=== PATIENT | female | born 1975 | race American Indian/Alaskan Native ===

== ENCOUNTER 2018-12-18 10:06 | Emergency (ER) | payer OTHER ==
[2018-12-18 10:28] VITALS: BP 115/77; PULSE 66; RESP 18; TEMP 99.1; O2SAT 100
--- NOTE | 2018-12-18 11:06 | RAD ---
Date of service: 12/18/2018 PROCEDURE: Left Ankle Radiographs. HISTORY: left ankle pain swelling COMPARISON: None available. TECHNIQUE: 3 views obtained. FINDINGS: BONES: There is an old fracture deformity in the distal fibula. There is an old medially displaced fracture in the medial malleolus. No acute displaced fracture or bone destruction.. There is a small plantar calcaneal spur. 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 Ankle mortise maintained. Talar dome intact SOFT TISSUES: There is mild lateral soft tissue swelling. OTHER FINDINGS: None. IMPRESSION: 1. Old fracture deformities in the medial malleolus and distal fibula. 2. 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 3. No acute displaced fracture or dislocation.
--- NOTE | 2018-12-18 14:17 | C.PDOC ---
History Of Present Illness 43 y/o female presents to the ER complaining of persistent left ankle pain which has been present for the past 1 year. Patient states that she fell and broke her ankle while she was in [facility] in February 2018. Patient reports that she was evaluated by a doctor but she did not receive treatment. She notes that she was seen for same complaint in [facility] recently. She states that she was given referral for orthopedist but she did not follow up with an orthopedist as of now. She is able to ambulate without assistance. Denies having weakness and numbness. Chief Complaint (Nursing): Lower Extremity Problem/Injury History Per: Patient History/Exam Limitations: no limitations Onset/Duration Of Symptoms: Days Current Symptoms Are (Timing): Still Present Severity: Moderate Past Medical History Reviewed: Historical Data, Nursing Documentation, Vital Signs Vital Signs: Last Vital Signs Temp 99.1 F 12/18/18 10:24 Pulse 66 12/18/18 10:24 Resp 18 12/18/18 10:24 BP 115/77 12/18/18 10:24 Pulse Ox 100 12/18/18 10:24 - Medical History PMH: HTN Surgical History: No Surg Hx Family History: States: No Known Family Hx - Social History Hx Alcohol Use: No Hx Substance Use: No Review Of Systems Except As Marked, All Systems Reviewed And Found Negative. Musculoskeletal: Positive for: Other (left ankle pain) Neurological: Negative for: Weakness, Numbness Physical Exam - Physical Exam Appears: Non-toxic, No Acute Distress Skin: Normal Color, Warm, Dry Head: Atraumatic, Normacephalic Eye(s): bilateral: Normal Inspection Nose: Normal Oral Mucosa: Moist Neck: Supple Chest: Symmetrical Extremity: Normal ROM, Capillary Refill (< 2 seconds), Deformity (obvious deformity of left ankle) Pulses: Left Dorsalis Pedis: Normal Neurological/Psych: Oriented x3, Normal Speech Gait: Steady ED Course And Treatment O2 Sat by Pulse Oximetry: 100 (RA) Pulse Ox Interpretation: Normal - Other Rad X-Ray-Left Ankle X-Ray: Viewed By Me, Read By Radiologist Interpretation: Date of service: 12/18/2018. PROCEDURE: Left Ankle Radiographs. HISTORY: left ankle pain swelling. COMPARISON: None available. TECHNIQUE: 3 views obtained. FINDINGS: BONES: There is an old fracture deformity in the distal fibula. There is an old medially displaced fracture in the medial malleolus. No acute displaced fracture or bone destruction.. There is a small plantar calcaneal spur. There is a small dorsal calcaneal enthesophyte. 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 Ankle mortise maintained. Talar dome intact. SOFT TISSUES: There is mild lateral soft tissue swelling. OTHER FINDINGS: None. IMPRESSION: 1. Old fracture deformities in the medial malleolus and distal fibula. 2. 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 3. No acute displaced fracture or dislocation. Medical Decision Making Medical Decision Making: Plan: --X-Ray-Left Ankle Updates: Aircast Splint has been applied by laundry tech. Patient has been discharged and instructed to follow up with orthopedist. Disposition - Disposition Referrals: [facility] [Outside] [facility] [Outside] Orth[facility] Clinic at [Outside] Disposition: HOME/ ROUTINE Disposition Time: 11:00 Condition: GOOD Additional Instructions: DEJUAN MORALES, thank you for letting us take care of you today. The emergency medical care you received today was directed at your acute symptoms. If you were prescribed any medication, please fill it and take as directed. It may take several days for your symptoms to resolve. Return to the Emergency Department if your symptoms worsen, do not improve, or if you have any other problems. Please contact your doctor or call one of the physicians/clinics you have been referred to that are listed on the Patient Visit Information form that is included in your discharge packet. Bring any paperwork you were given at discharge with you along with any medications you are taking to your follow up visit. Our treatment cannot replace ongoing medical care by a primary care provider outside of the emergency department. Thank you for allowing the [employer] team to be part of your care today. You have a very old fracture (break) of your ankle. Follow up with the clinic to see the orthopedic doctor. Prescriptions: Ibuprofen [Motrin] 600 mg PO Q6 PRN #20 tab PRN Reason: Pain, Moderate (4-7) Instructions: Ankle Fracture (DC) Forms: [employer] (Turkish) - Clinical Impression Clinical Impression: Ankle fracture, left - Scribe Statement The provider has reviewed the documentation as recorded by the Nicibvangie Stephens Provider Attestation: All medical record entries made by the Scribe were at my direction and personally dictated by me. I have reviewed the chart and agree that the record accurately reflects my personal performance of the history, physical exam, medical decision making, and the department course for this patient. I have also personally directed, reviewed, and agree with the discharge instructions and disposition.
== END 2018-12-18 11:39 | disposition home or self-care (01) ==
LOC: C.ER 10:06
DX: S82.52XA Displaced fracture of medial malleolus of left tibia, initial encounter for closed fracture (principal); W19.XXXA Unspecified fall, initial encounter; I10 Essential (primary) hypertension

== ENCOUNTER 2019-01-14 12:12 | Emergency (ER) | payer OTHER ==
[2019-01-14 12:21] VITALS: RESP 18
[2019-01-14] MEDS ORDERED: Sodium Chloride 0.9% 1,000 ML IV ONE (12:57)
--- NOTE | 2019-01-14 13:17 | RAD ---
HISTORY: cough COMPARISON: None available. TECHNIQUE: Chest PA and lateral, 2 views FINDINGS: LUNGS: No focal consolidation. Please note that chest x-ray has limited sensitivity for the detection of pulmonary masses. PLEURA: No significant pleural effusion identified. No definite pneumothorax . CARDIOVASCULAR: Borderline cardiomegaly. Atherosclerotic calcifications present. OSSEOUS STRUCTURES: No acute osseous abnormality identified. VISUALIZED UPPER ABDOMEN: Unremarkable. OTHER FINDINGS: None. IMPRESSION: No focal consolidation.
[2019-01-14 13:35] LABS: BASO # 0.1 K/uL (0.0-0.2); EOS # 0.3 K/uL (0.0-0.7); EOS % 6.6 % (0.0-4.0); HEMOGLOBIN 9.5 g/dL (11.0-16.0); LYMPH # 1.3 K/uL (1.0-4.3); LYMPH % 26.2 % (20.0-40.0); MEAN CORPUSCULAR HEMOGLOBIN 19.5 pg (27.0-31.0); MEAN CORPUSCULAR HGB CONC 29.5 g/dL (33.0-37.0); MONO # 0.7 K/uL (0.0-0.8); MONO % 14.3 % (0.0-10.0); NEUT # 2.6 K/uL (1.8-7.0); NEUT % 51.9 % (50.0-75.0); NRBC % 0.2 % (0.0-2.0); RBC 4.87 Mil/uL (3.80-5.20); RED CELL DISTRIBUTION WIDTH 18.4 % (11.5-14.5)
[2019-01-14 13:40] LABS: MEAN CELL VOLUME 66.2 fL (81.0-99.0)
[2019-01-14 13:54] LABS: SQUAMOUS EPITHIAL 8 /hpf (0-5); URINE BACTERIA RARE (<OCC); URINE BILIRUBIN NEGATIVE (NEGATIVE); URINE BLOOD NEGATIVE (NEGATIVE); URINE CLARITY Hazy (Clear); URINE COLOR Yellow (YELLOW); URINE GLUCOSE (UA) NORMAL (Normal); URINE LEUKOCYTE ESTERASE TRACE Leu/uL (Negative); URINE PROTEIN NEGATIVE (NEGATIVE); URINE UROBILINOGEN NORMAL mg/dL (0.2-1.0)
--- NOTE | 2019-01-14 13:55 | C.PDOC ---
History Of Present Illness 43 year old female presents to the ED complaining of subjective fever, chills, rhinorrhea, bodyaches and cough for 2 days. Reports she tried Alleve at home with minor improvement. Denies any chest pain, abdominal pain, shortness of b reath, and urinary symptoms. Denies sick contacts or recent travels. Time Seen by Provider: 01/14/19 12:42 Chief Complaint (Nursing): Flu-like Symptoms History Per: Patient History/Exam Limitations: no limitations Onset/Duration Of Symptoms: Days (2) Current Symptoms Are (Timing): Still Present Location Of Pain: Diffuse Myalgias Sick Contacts (Context): None Associated Symptoms: denies: Fever, Chills Past Medical History Reviewed: Historical Data, Nursing Documentation, Vital Signs Vital Signs: Last Vital Signs Temp 98.7 F 01/14/19 12:15 Pulse 65 01/14/19 12:15 Resp 18 01/14/19 12:15 BP 118/82 01/14/19 12:15 Pulse Ox 100 01/14/19 12:15 Primary Care Provider: FAMILY PROVIDER,NO - Medical History PMH: Gastritis, HTN Other Surgeries: Hx of surgeries Family History: States: No Known Family Hx - Social History Hx Alcohol Use: No Hx Substance Use: No Review Of Systems Except As Marked, All Systems Reviewed And Found Negative. Constitutional: Positive for: Fever, Chills, Other (bodyaches ) ENT: Positive for: Nose Discharge Cardiovascular: Negative for: Chest Pain Respiratory: Positive for: Cough. Negative for: Shortness of Breath Gastrointestinal: Negative for: Nausea, Vomiting, Abdominal Pain, Diarrhea Genitourinary: Negative for: Dysuria, Hematuria Physical Exam - Physical Exam Appears: Non-toxic, No Acute Distress Skin: Warm, Dry, No Rash Head: Normacephalic Eye(s): bilateral: Normal Inspection, PERRL, EOMI Ear(s): Bilateral: Normal Nose: Normal Oral Mucosa: Moist Tongue: Normal Appearing Lips: Normal Appearing Teeth: Normal Dentition Gingiva: Normal Appearing Throat: Normal, No Erythema, No Exudate Neck: Supple Chest: Symmetrical Cardiovascular: Rhythm Regular Respiratory: Normal Breath Sounds, No Rales, No Rhonchi, No Wheezing Gastrointestinal/Abdominal: Soft, Tenderness (mild diffused abdominal tenderness ), No Distention, No Guarding, No Rebound Neurological/Psych: Oriented x3, Normal Speech Gait: Steady ED Course And Treatment - Laboratory Results Result Diagrams: 01/14/19 13:17 01/14/19 13:17 O2 Sat by Pulse Oximetry: 100 (RA) Pulse Ox Interpretation: Normal - Other Rad CXR X-Ray: Viewed By Me, Read By Radiologist Interpretation: Accession No. : [id number]. Patient Name / ID : CARMEN ZAIDI / [id number]. Exam Date : 01/14/2019 13:01:46 ( Approved ). Study Comment : Sex / Age : F / 43Y. Creator : Ester Butler MD. Dictator : Ester Butler MD. Group Fitness Assistant Department Head : Tip Bander : Ester Butler MD. Approver2 : Report Date : 01/14/2019 13:13:39. My Comment : . HISTORY: cough. COMPARISON: None available. TECHNIQUE: Chest PA and lateral, 2 views. FINDINGS: LUNGS: No focal consolidation. Please note that chest x-ray has limited sensitivity for the detection of pulmonary masses. PLEURA: No significant pleural effusion identified. No definite pneumothorax . CARDIOVASCULAR: Borderline cardiomegaly. Atherosclerotic calcifications present. OSSEOUS STRUCTURES: No acute osseous abnormality identified. VISUALIZED UPPER ABDOMEN: Unremarkable. OTHER FINDINGS: None. IMPRESSION: No focal consolidation. Medical Decision Making Medical Decision Making: Plan - Bloodwork - UA - IV fluids - CXR - Influenza A B Stat CXR without infiltrates, patient afebrile with no signs of infection, flu negative, recommend supportive treatment Disposition - Disposition Disposition: HOME/ ROUTINE Disposition Time: 14:21 Condition: STABLE Additional Instructions: You were seen today for viral upper respiratory infection. Make sure to stay hydrated, you may continue to take OTC medications such as motrin or aleve for your body aches. Return to the ED for worsening symptoms. Please follow up with your PMD regarding your elevated liver enzymes. Prescriptions: Ibuprofen [Ibu] 400 mg PO Q6H #30 tablet Instructions: Viral Upper Respiratory Infection, Adult (DC) Forms: [employer] (Malawian) - POA Present On Arrival: None - Clinical Impression Clinical Impression: URI (upper respiratory infection) - PA / ELECTRICAL TIMING DEVICE CALIBRATOR / Resident Statement MD/DO has reviewed & agrees with the documentation as recorded. - Scribe Statement The provider has reviewed the documentation as recorded by the Scribe Roslyn Becerra All medical record entries made by the Scribe were at my direction and personally dictated by me. I have reviewed the chart and agree that the record accurately reflects my personal performance of the history, physical exam, medical decision making, and the department course for this patient. I have also personally directed, reviewed, and agree with the discharge instructions and disposition.
[2019-01-14 14:05] LABS: ALB/GLOB RATIO 0.9 (1.0-2.1); ALT/SGPT 118 U/L (9-52); AST/SGOT 129 U/L (14-36); BLOOD UREA NITROGEN 14 mg/dL (7-17); CALCIUM 9.2 mg/dl (8.6-10.4); GFR NON-AFRICAN AMERICAN 54
[2019-01-14 14:49] VITALS: BP 119/79; PULSE 84; TEMP 97.9
[2019-01-14 14:50] VITALS: O2SAT 100
== END 2019-01-14 14:47 | disposition home or self-care (01) ==
LOC: C.ER 12:12
DX: J06.9 Acute upper respiratory infection, unspecified (principal)
CPT/HCPCS: 71046; 80053; 81001; 85025; 87804; 96360; 99284; J7030